=== PATIENT | male | born 1985 | race Hispanic/Latino ===

== ENCOUNTER 2016-09-04 01:58 | Emergency (ER) | payer SELFPAY ==
[2016-09-04 02:10] VITALS: BP 123/76
[2016-09-04 02:59] LABS: Alanine Aminotransferase 16 units/L (7-56); Albumin 4.3 g/dL (3.9-5); Albumin/Globulin Ratio 1.6 %; Alkaline Phosphatase 57 units/L (35-129); Anion Gap 18 mmol/L; Blood Urea Nitrogen 19 mg/dL (9-20); Carbon Dioxide 24 mmol/L (22-30); Glucose 95 mg/dL (75-100); Sodium 136 mmol/L (137-145)
[2016-09-04 03:54] LABS: Hematocrit 41.5 % (35.5-45.6); Hemoglobin 14.2 gm/dl (11.8-15.2); Mean Corpuscular HGB Conc 34 % (32-34); Mean Corpuscular Hemoglobin 33 pg (28-32); Mean Corpuscular Volume 96 fl (84-94); Platelet Count 235 K/mm3 (140-440); Red Blood Count 4.34 M/mm3 (3.65-5.03); Red Cell Distribution Width 13.4 % (13.2-15.2)
[2016-09-04 04:42] LABS: INR 0.9 (0.87-1.13)
[2016-09-04 04:43] LABS: Partial Thromboplastin Time 35.9 Sec. (24.2-36.6)
== END 2016-09-04 06:00 | disposition left against medical advice (07) ==
LOC: ED 01:58
DX: Z53.21 Procedure and treatment not carried out due to patient leaving prior to being seen by health care provider (principal)
CPT/HCPCS: 36415; 80053; 85027; 85610; 85730; 93005; 93010